=== PATIENT | male | born 1985 | race Caucasian/White ===

== ENCOUNTER 2018-12-23 06:38 | Outpatient (CLI) | payer OTHER ==
[2018-12-23 10:17] LABS: #Eosinphils 0.2 thou/uL (0.0-0.7); #Lymphocytes 1.9 thou/uL (1.20-3.40); #Monocytes 0.4 thou/uL (0.11-0.59); #Neutrophils 2.6 thou/uL (1.40-6.50); %Basophils 0.9 % (0.0-1.0); %Lymphocytes 37.5 % (21.0-51.0); %Monocytes 7.5 % (0.0-10.0); %Neutrophils 51.1 % (42.0-75.0); Hemoglobin 14.4 g/dL (14.0-18.0); Mean Corpuscular HGB CONC 32.8 g/dL (32.0-36.0); Mean Corpuscular Hemoglobin 30.7 pg (27.0-31.0); Mean Corpuscular Volume 93.7 fL (78.0-98.0); Mean Platelet Volume 8.5 fL (7.4-10.4); Platelet Count 197 thou/uL (130-400); RBC Distribution Width 11.7 % (11.5-14.5); White Blood Cell (WBC) Count 5.1 thou/uL (4.8-10.8)
== END 2018-12-23 06:39 | disposition home or self-care (01) ==
LOC: LABBT 06:38
PROVIDERS: ATTEND Orthopaedic Surgery Hand Surgery
DX: Z01.812 Encounter for preprocedural laboratory examination (principal); D16.9 Benign neoplasm of bone and articular cartilage, unspecified
CPT/HCPCS: 85025

== ENCOUNTER 2018-12-25 05:42 | Day surgery (SDC) | payer OTHER ==
[2018-12-23 09:51] VITALS: BMI 24.4
[2018-12-25] MEDS ORDERED: Sodium Chloride 0.9% 10 ML ONE (06:37)
[2018-12-25] MEDS ORDERED: Bupivacaine PF 0.5% 30 ML VIAL ONE (06:37)
[2018-12-25] MEDS ORDERED: Bacitracin Zinc Ointment 30 gm TUBE ONE (06:37)
[2018-12-25] MEDS ORDERED: Betamet Acet/Betamet Na Ph 30 MG/5 ML VIAL ONE (06:37)
[2018-12-25] MEDS ORDERED: Famotidine/PF 20 mg/2ml Vial ONE (06:38)
[2018-12-25] MEDS ORDERED: Fentanyl 100 MCG/2 ML VIAL ONE (06:38)
[2018-12-25] MEDS ORDERED: Midazolam HCl 2 mg/2 ml Vial ONE (07:02)
[2018-12-25] MEDS ORDERED: Ketorolac Tromethamine 30 MG/ML VIAL ONE ×2 (09:45→11:37)
--- NOTE | 2018-12-25 10:58 | RAD ---
RADIOGRAPH LEFT FIFTH DIGIT 2 VIEWS: Date: 12/25/18 HISTORY: 33-year-old male with hand bone tumor. FINDINGS: A total of five small field of view fluoroscopic spot images obtained with C-arm in the OR, with intr insically low resolution. There is an expansile osteolytic lesion involving the head and neck of the fifth metacarpal. There is a pathologic fracture with minimal displacement. There is mild volar angul ation of the distal fragment compared to the shaft. One of the images demonstrate tissue retractors a nd a linear metallic probe over the head of the fifth metacarpal. 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 POS: Nilda
[2018-12-25] MEDS ORDERED: Metoclopramide HCl 10 MG/2 ML VIAL ONE (11:37)
[2018-12-25] MEDS ORDERED: Lidocaine 1% PF 5 ML VIAL ONE (11:37)
[2018-12-25] MEDS ORDERED: PROPOFOL 200 MG/20 ML VIAL ONE (11:37)
[2018-12-25] MEDS ORDERED: Dexamethasone 20 MG/5 ML VIAL ONE (11:37)
[2018-12-25] MEDS ORDERED: Ondansetron PF 4 MG/2 ML Vial ONE (11:37)
--- NOTE | 2018-12-25 15:56 | OP ---
DATE OF PROCEDURE: 12/25/2018 PREOPERATIVE DIAGNOSIS: Benign bone tumor, 4 cm. Total size approximately 2.5 cm x 1.5 cm, occupying a very bulbous and dilated distal 3rd extra-articular of the small finger metacarpal. POSTOPERATIVE DIAGNOSIS: Benign bone tumor, 4 cm. Total size approximately 2.5 cm x 1.5 cm, occupying a very bulbous and dilated distal 3rd extra-articular of the small finger metacarpal with an intraoperative specimen sent for fresh frozen, revealing enchondroma. PROCEDURE PERFORMED: 1. Excision, benign tumor, 4 cm, small finger metacarpal distal third. 2. Bone biopsy of the same area. 3. Bone grafting, minor, with a total of approximately 2 mL canal. ANESTHESIA: General endotracheal anesthesia, augmented by 30 mL of 0.5% Marcaine, 15 given before surgery and 15 after the wound was closed. TOURNIQUET TIME: 77 minutes. COMPLICATIONS: None. C-ARM USE: Yes. Bone graft was from back bone, already crushed and made more fine for this procedure. Fresh-frozen technique, intraoperative, yes. The total size between 3.5 and 4 cm x 1.5 cm of the enchondroma clinically radiographically, MRI, and by fresh frozen pathology report. DESCRIPTION OF PROCEDURE: The patient had limb prepped and draped. Time-out was done appropriately. We outlined the incision. Using the C-arm to make it as small as possible, approximately a 3 cm incision. We then exsanguinated the limb, placed a tourniquet in 250 mmHg pressure and then injected the area of the incision as stated above with 0.5% Marcaine. Carried the incision through skin and subcutaneous tissue, identified superficial ulnar branch, protected them. Went slightly radial to the extensor tendons and went through the periosteum in an area outlined again by the C-arm. Once this was done, we used a [place] blade to make a shell, oval, approximately 8 mm long, approximately 3.5 to 4 mm wide at the center and then from here we began under C-arm guidance to curettage all of the marrow replacement elements that were probably a tumor. Once this was done, it took almost 20 minutes, we checked the C-arm and saw that on frontal sagittal plane, the bone was thin, but there was no fracture seen or penetration. For this reason, the patient had the pathology specimen awaited, and once we found it was not giant cell, but it had been a very benign and nonaggressive enchondroma, we did not perform the methylmethacrylate or other agent. We released the tourniquet, obtained hemostasis. We then packed the defect with crushed bone graft, probably a cortical in nature, and once we had done this affectively and radiograph showed over 95% of the previous tumor was completely filled in this cavity, we then were able to remove the power instrumentation and prepare for final closure. The bone graft did not move from the site and then we were able to close the wound with interrupted Monocryl 4-0 for deep dermal after epidermal closure with 4-0 nylon in a simple pattern. The patient then had a bulky dressing applied, did the rest of his Marcaine, placed in an ulnar gutter splint out to the level of the mid P1 and left the operating room without evidence of anesthetic or operative complication. Job ID: [id number]
== END 2018-12-25 11:00 | disposition home or self-care (01) ==
LOC: SDC 05:42
PROVIDERS: ATTEND Orthopaedic Surgery Hand Surgery
PROC: 0PR Upper Bones, Replacement (ICD-10-PCS; principal; 2018-12-25)
DX: D16.12 Benign neoplasm of short bones of left upper limb (principal); M84.642A Pathological fracture in other disease, left hand, initial encounter for fracture
CPT/HCPCS: 76000; 88304; 88307; 88331; J0131; J0690; J0702; J1100; J1885; J2001; J2250; J2405; J2704; J2765; J3010; J3490; S0020; S0028